=== PATIENT | female | born 1965 | race Caucasian/White ===

== ENCOUNTER 2021-03-10 17:48 | Outpatient (CLI) | payer BC, SELFPAY ==
--- NOTE | 2021-03-10 18:04 | XR_ITS ---
WS: [id number] RIGHT FOOT: 3 VIEW(S) TECHNIQUE: AP, oblique and lateral. HISTORY: FOOT PAIN, RIGHT COMPARISON: None available. No acute fracture or dislocation. Normal tarsal/metatarsal alignment. No soft tissue abnormality or bone destruction. 10 mm calcaneal spur. XR/XR foot RT min 3V* [id number] IMPRESSION: 1. No fracture. 2. 10 mm calcaneal spur.
== END 2021-03-10 17:49 | disposition home or self-care (01) ==
PROVIDERS: PCP Nurse Practitioner Family; Visit Provider Nurse Practitioner Family
DX: M77.31 Calcaneal spur, right foot (principal)
CPT/HCPCS: 73630

== ENCOUNTER 2021-08-20 15:04 | Outpatient (CLI) | payer BC, SELFPAY ==
--- NOTE | 2021-08-20 15:16 | MM_ITS ---
WS: [id number] BILATERAL SCREENING 3D TOMOSYNTHESIS DIGITAL MAMMOGRAM WITH CAD HISTORY: SCREENING COMPARISON: 11/26/2018 and 10/12/2010 Bilateral CC and MLO views submitted. Computer aided detection analyzed. Breast composition: There are scattered areas of fibroglandular density. No suspicious masses, microc alcifications or architectural distortion. MM/[place] [id number] IMPRESSION: BI-RADS: 1-Negative FOLLOW UP: 1 Year Follow-up
== END 2021-08-20 15:05 | disposition home or self-care (01) ==
PROVIDERS: PCP Nurse Practitioner Family; Visit Provider Nurse Practitioner Family
DX: Z12.31 Encounter for screening mammogram for malignant neoplasm of breast (principal)
CPT/HCPCS: 77063; 77067

== ENCOUNTER 2024-08-09 15:45 | Outpatient (CLI) | payer BC, SELFPAY ==
--- NOTE | 2024-08-09 15:51 | XRR_ITS ---
PROCEDURE INFORMATION: Exam: XR Chest Exam date and time: 08/09/2024 3:55 PM Age: 59 years old Clinical indication: Smoker's cough; Additional info: Uri TECHNIQUE: Imaging protocol: Radiologic exam of the chest. Views: 2 views. COMPARISON: No relevant prior studies available. FINDINGS: Lungs: Calcified nodule in the right lung base. No lobar consolidation. Pleural spaces: Unremarkable. No pleural effusion. No pneumothorax. Heart/Mediastinum: Unremarkable. No cardiomegaly. Bones/joints: Unremarkable. XR/XR chest 2V* [id number] IMPRESSION: As above.
== END 2024-08-09 15:46 | disposition home or self-care (01) ==
LOC: RAD 15:48
PROVIDERS: PCP Nurse Practitioner Family; Visit Provider Nurse Practitioner Family
DX: J06.9 Acute upper respiratory infection, unspecified (principal); F17.200 Nicotine dependence, unspecified, uncomplicated; R91.1 Solitary pulmonary nodule
CPT/HCPCS: 71046

== ENCOUNTER 2025-01-25 17:29 | Inpatient (IN) | payer BC, SELFPAY ==
[2025-01-25] VITALS (26 sets, daily range): BP systolic 89–132; BP diastolic 60–86; PULSE 71–99; RESP 8–25; TEMP 36.2–36.4; O2SAT 90–100; BMI 27.3
--- NOTE | 2025-01-25 17:31 | ECG_ITS ---
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 Measurements Intervals [place] Rate: 93 P: 60 NC: 175 QRS: 16 QRSD: 156 T: 90 QT: 372 QTc: 464 Interpretive Statements SINUS RHYTHM POSSIBLE LEFT ATRIAL ENLARGEMENT [-0.1mV P-WAVE IN V1/V2] INTRAVENTRICULAR CONDUCTION DELAY [130+ ms QRS DURATION] MARKED ST ELEVATION, CONSIDER ANTEROLATERAL INJURY [MARKED ST ELEVATION W/O NORMALLY INFLECTED T-WAVE IN V2-V5] MARKED ST ELEVATION, CONSIDER INFERIOR INJURY [MARKED ST ELEVATION W/O NORMALLY INFLECTED T-WAVE IN II/aVF] ACUTE [place] No previous ECG available for comparison Electronically Signed On 01-26-2025 22:12:26 CDT by Timmy Brantley M.D. [email or web address]
--- NOTE | 2025-01-25 17:31 | XRR_ITS ---
PROCEDURE INFORMATION: Exam: XR Chest Exam date and time: 01/25/2025 5:38 PM Age: 59 years old Clinical indication: Pain; Chest pressure; Additional info: Chest pain; Stemi TECHNIQUE: Imaging protocol: Radiologic exam of the chest. Views: 1 view. COMPARISON: CR XR chest 2V* [id number] 08/09/2024 3:55 PM FINDINGS: Lungs: Probable pulmonary granuloma at the right lung base. Otherwise Unremarkable. No consolidation. Pleural spaces: Unremarkable. No pleural effusion. No pneumothorax. Heart/Mediastinum: Unremarkable. No cardiomegaly. Bones/joints: Probable calcific tendinopathy of the bilateral shoulders, [id number]-[id number]-[id number]-left. Otherwise Unremarkable. XR/XR chest 1V portable [id number] IMPRESSION: No acute findings.
--- NOTE | 2025-01-25 17:36 | XACV_ITS ---
Exam Room: 2 Ht: 173 cm Wt: 82 kg BSA: 2.00 m2 Gender: Female : 1965 Any Known Allergies: No known allergies Exam Priority: Routine Procedure(s): Procedure Description: Diagnostic procedure Procedure Description: PCI procedure Procedure Description: Left Heart Catheterization Procedure Description: Left ventriculography Procedure Description: Drug Eluting Coronary Stent Procedure Description: PTCA Procedure Description: Miscellaneous Procedure Description: ACT Procedure Description: Coronary Angiography Diagnostic Cath Status: Emergency Diagnostic Findings * Left Main has no disease. * Circumflex has no disease. * Proximal Left Anterior Descending to Mid Left Anterior Descending: subtotal occlusion, FALLON: 1 flow. * Proximal Right Coronary Artery: moderate 50% stenosis, FALLON: 3 flow. * 1st Diagonal: subtotal occlusion, FALLON: 2 flow. * Coronary angiography shows right dominance. PCI Indication: STEMI - Immediate PCI for STEMI Interventional Findings * Urgent left heart catheterization was performed for ST elevation LA. Patient was noted to have subtotally occluded bifurcating proximal to mid LAD with moderate size and caliber parallel diagonal system. RCA was noted to have proximal 40% stenosis, left circumflex has no significant disease. Given the nature of the bifurcating lesion, we discussed the option of urgent CABG while talking to the family patient had a V-fib arrest, it is the reason we have to intervene emergently. Patient was treated with multiple defibrillations given amiodarone bolus followed by amnio drip at the same time with intermittent, proximal LAD to proximal diagonal stent was placed. With pre and postdilated with noncompliant balloon. Mid LAD lesion was then predilated with compliant balloon followed by placement of drug-eluting stent postdilated with noncompliant balloon. Excellent angiographic result FALLON-3 flow was restored. LV gram was suggestive of 40% ejection fraction with moderately elevated left ventricular end-diastolic pressure 24 mmHg there was no aortic valve gradient. Patient was started on Levophed, since she was throwing up in the ED there was high suspicion that patient may have vomited loading dose of Plavix. OG tube was passed and patient is loaded with Brilinta. Currently patient is intubated on 1 pressor at the moment blood pressure is 130/80. She is stable vital faustin. She is on vent with 100% FiO2 and PEEP of 6.. * Successful PCI from proximal LAD into proximal Diagonal branch, Lesion was prepared with 2.5 x 20 mm AB TREK balloon, followed by deployment of BALWINDER 3.0 x 26 mm stent posted at high RERE of 12 mm. Stent was then post-dilated with serial dilatation of NC BALLOON 3.5 x 8 at 18 RERE in its entire length to ensure proper approximation. Excellent angiographic result with FALLON-3 flow was achieved. . * Successful PCI to mid LAD using T stenting technique, Lesion was prepared with 2.5 x 8 mm AB TREK balloon, followed by deployment of BALWINDER 2.5 x 8 mm stent posted at high RERE of 12 mm. Stent was then post-dilated with serial dilatation of NC BALLOON 3.0 x 8 at 18 RERE in its entire length to ensure proper approximation. Excellent angiographic result with FALLON-3 flow was achieved. . * Proximal Left Anterior Descending to Mid Left Anterior Descendin% stenosis treated with a Drug Eluting Stent. 0% residual stenosis, FALLON: 3 flow. * 1st Diagonal: 99% stenosis treated with a Drug Eluting Stent. 0% residual stenosis, FALLON: 3 flow. Conclusions 1. There is subtotal occlusion coronary artery disease with two vessel disease. 2. The apex, mid posterior, anterolateral martin are hypokinetic. 3. All other visualized martin normal. 4. Mild left ventricular systolic dysfunction. Ejection fraction of 40%. 5. Proximal Left Anterior Descending to Mid Left Anterior Descending was treated with a Drug Eluting Stent. 6. 1st Diagonal was treated with a Drug Eluting Stent. Recommendations * 1-Transfer patient to the ICU over vent and 1 pressor, condition remained guarded and critical 2-Risk factor modification for secondary prevention 3-Statin with LDL goal <70 mg/dl, aspirin 81 mg life-long 4-Patient was pre-loaded with 180mg of Brillinta. Continue Brillinta 90mg p.o. twice daily for at least one year. We will assess at the end of one year again to continue it further or not 5-Continue optimal medical management 4-Exvrb-stgqsdty antibiotics for possible aspiration, continue to monitor for pneumonia and ARDS. Interventional RX Recommendation: PCI w/o planned CABG Diagnostic RX Recommendation: PCI w/o planned CABG LV EDP: 24 mmHg Ventriculography Ejection Fraction: 40.0 % Pressures Phase:Rest AO : 104 / 66 ( 85 ) @ 3:09:26 PM 107 / 60 ( 84 ) @ 3:09:26 PM 481 / 0 ( 267 ) @ 3:09:26 PM 479 / 478 ( 166 ) @ 3:09:26 PM 87 / 72 ( 80 ) @ 3:09:26 PM 85 / 64 ( 75 ) @ 3:09:26 PM 149 / 85 ( 110 ) @ 3:09:26 PM 119 / 63 ( 86 ) @ 3:09:26 PM 111 / 61 ( 82 ) @ 3:09:26 PM LV : 107 / 3 / 24 @ 3:09:26 PM 104 / 5 / 27 @ 3:09:26 PM 105 / 5 / 28 @ 3:09:26 PM Valves Phase:DefaultPhase AV : 0.0 @ 8:09:26 PM AV Mean Gradient: 0.0 @ 8:09:26 PM Clinical Evaluation EBL: 5mL-10mL Procedural Details Pre-Procedure Time Out. Identified patient by full name and date of as verbalized by the patient/guarantor. Does the consent match the physician's order: N/A Emergent. Accurate & Complete Informed Consent: N/A Emergent. Inpatient/Outpatient History & Physical on Chart: N/A Emergent. If H&P is completed, is and addenduem needed: N/A Emergent; If yes, is the addendum complete: N/A Emergent. Visualize and Verify Site with Patient/Guarantor: N/A. Relevant Radiology Images available: N/A. The risks, benefits, and alternatives of sedation and/or procedure were discussed by physician. The patient agrees to continue. Procedure started. [facility] Clinical Fraility Score: 4: Vulnerable. Data Warehouse Architect Indications: ACS <= 24 hours. Chest Pain Symptom Assessment: Typical Angina Symptoms. Correct patient, site and procedure confirmed by cath team. Current diagnosis: STEMI. PERRLA. Strong, equal hand carpenter form bilaterally. Lungs clear x 5 lobes. IV Site on Arrival: 20 gauge in the left anticubital. IV Site on Arrival: 18 gauge in the right anticubital. IV Fluids: 0.9% NaCl at KVO. 400 mL infused prior to manufacturing lab technician. Pre Procedural Pulses: right radial was Absent. Pre Procedural Pulses: bilateral dorsalis pedis was Doppled. Oxygen started at 3liters/min via nasal canula. bilateral groins was prepped with chloroprep then draped in the usual sterile fashion. Baseline sample Acquired. HR: 75 BPM. Physician notified. Physician arrived. Physician scrubbed in. Immediate Pre-Procedure Time Out. Correct Patient: Yes; Correct Procedure: Yes; Correct Site: Yes; Correct Patient Position: Yes; Correct Supplies: Yes; Dried Flammable Prep: Yes; Blood Products Available: No;. Lidocaine 1% infiltrated to the right groin. Admit Source: Emergency department. Arterial access obtained with micropuncture set. Lidocaine 1% infiltrated to the right groin. 6 cameroonian JR 4 guide catheter was inserted over the wire. Guide catheter out. 6 cameroonian XB 3 guide catheter was inserted over the wire. Add inventory: Co-mobile tester, Endoflator. Angiography performed. Guide catheter out. A 5 cameroonian Angled Pig catheter in over wire. EDP Sample taken: LV 107/3,24; HR: 79 BPM; SpO2: 93%. LV gram performed in BROWN @ 10 mL/second for a total of 30 mL. EDP Sample taken: LV 104/5,27; HR: 80 BPM; SpO2: 96%. Pullback taken: LV 105/5,28; AO 104/66(85); Mean: 0mmHg, Peak to Peak: 0mmHg, SEP: 22sec/min; HR: 80 BPM; SpO2: 92%. Catheter removed over the exchange wire. A Right femoral angiogram was performed to determine safe placement of closure device. Vfib arrest. Shocked Delivered. CODE BLUE called. See code flowsheet. V-fib arrrest. Shock delivered. Obtained ROSC. XB 3 guide catheter in over the wire. Runthrough guidewire was advanced through the guide catheter to lesion in the prox LAD. Inflation number : 1 A AB TREK 2.50X20 RX BALLOON was prepped and advanced across the Prox LAD , then inflated to 20 RERE for 0:08 seconds. V-fib shock delivered. Balloon out. Stent inserted to lesion in the prox LAD. Inflation Number : 2 A SARA Pink BALWINDER 3.0X26 ERVIN -Lot Number# [id number] EXP 08-26-2027 was prepped and advanced across the Prox LAD. The stent was deployed at 14 RERE for 0:11 seconds. Stent balloon out over wire. Results checked. ED physician arrived to intubate patient , size 7.5 tube 23 at lip. RT at bedside bagging patient and airway management. ACT drawn. Results 394 seconds. Therapeutic limits - pre-heparin administration 90-150 seconds and monitoring heparin during a vascular procedure >250 seconds. Second runthrough wire in through guide catheter to diagonal. Lidocaine 1% infiltrated to the left groin. Venous access obtained with a micropuncture set. Levophed gtt titrated to 15mcg/min by Cale Winston RN. Propofol gtt started at 35mcg/kg/min by Cale Winston. Propofol titrated to 50mcg/kg/min by Cale Winston RN. OG tube placed. Propofol titrated to 6mcg/kg/min by Cale Winston, RN. Balloon inserted to lesion in the mid LAD. Versed gtt started by Cale Winston RN at 1mg/hr. Inflation number : 1 A AB TREK 2.50X8 RX BALLOON was prepped and advanced across the Mid LAD , then inflated to 8 RERE for 0:12 seconds. Inflation number: 1 The AB TREK 2.50X8 RX BALLOON was reinflated across the Mid LAD1, to 10 RERE for 0:10 seconds. Balloon out. Stent inserted to lesion in the mid LAD. Inflation Number : 2 A MDT R BALWINDER 2.5X8 ERVIN -Lot Number# [id number] EXP 01-13-2026 was prepped and advanced across the Mid LAD. The stent was deployed at 12 RERE for 0:07 seconds. Stent balloon out over wire. Results checked. Balloon inserted to lesion in the diaganol. Inflation number : 1 A MDT NC EUPHORA RX 3.50Y68PN BALLOON was prepped and advanced across the 1st Diag , then inflated to 8 RERE for 0:05 seconds. Inflation number: 2 The MDT NC EUPHORA RX 3.21O83UJ BALLOON was reinflated across the 1st Diag, to 8 RERE for 0:10 seconds. Inflation number: 3 The MDT NC EUPHORA RX 3.34I55RV BALLOON was reinflated across the 1st Diag, to 4 RERE for 0:04 seconds. Inflation number: 3 The MDT NC EUPHORA RX 3.28J98ZZ BALLOON was reinflated across the Prox LAD, to 8 RERE for 0:06 seconds. Balloon out over the wire. Balloon inserted to lesion in the mid LAD. Aggrastat gtt stopped due to blood out of OG tube. Inflation number : 3 A MDT NC EUPHORA RX 3.51U91MN BALLOON was prepped and advanced across the Mid LAD , then inflated to 10 RERE for 0:09 seconds. Balloon out. Both runthrough wires out. Guide catheter out. Results checked. Anesthesia arrived to manage sedation for patient. A Suture was successful obtaining hemostatsis at the Right Femoral artery insertion site. Sheath(s) sutured into position with 2-0 silk and sterile 4x4's and Op-site applied over the site. No oozing or signs and symptoms of hematoma noted. Arterial sheath flushed and connected to tranducer and pressure bag with heparinized saline. A Suture was successful obtaining hemostatsis at the Left Femoral vein insertion site. Post Procedure: Pulses reassessed and unchanged. No VTE prophylaxis required. Total IV fluids: 500 mL. ACT drawn. Results 308 seconds. Therapeutic limits - pre-heparin administration 90-150 seconds and monitoring heparin during a vascular procedure >250 seconds. PCI Indication: STEMI. Post-op diagnosis: Anterior wall LA, status post PCI placement of 2 ERVIN. Complications: V-fib arrest. Estimated blood loss: 5mL-10mL. Airway - Required intubation and ventilation. Circulation: W/N/L, pulses unchanged. Nausea/Vomiting: No. Radiology arrived to obtained post intubation chest xray. Procedure completed. Patient transferred by bed to ICU. Vital chart was stopped. Access Site Site: Right Femoral artery Sheath Size: 6 Fr Hemostasis Method: Suture Hemostasis Success: Successful Site: Left Femoral vein Sheath Size: 6 Fr Hemostasis Method: Suture Hemostasis Success: Successful Procedure Medications Start: 6:16 PM Stop: 6:16 PM Medication: 0.9% Saline Amount: 250 ml Route: I.V. bolus Start: 6:19 PM Stop: 6:19 PM Medication: Versed Amount: 1 mg Route: I.V. Start: 6:19 PM Stop: 6:19 PM Medication: Fentanyl Amount: 50 mcg Start: 6:24 PM Stop: 6:24 PM Medication: Atropine Amount: 0.5 mg Start: 6:26 PM Stop: 6:26 PM Medication: Versed Amount: 1 mg Route: I.V. Start: 6:26 PM Stop: 6:26 PM Medication: Heparin Amount: 5000 units Route: I.V. Start: 6:28 PM Stop: 6:28 PM Medication: Fentanyl Amount: 25 mcg Route: I.V. Start: 6:54 PM Stop: 6:54 PM Medication: Aggrastat 12.5 mg/250 mL Amount: 41 ml Route: I.V. bolus Start: 6:56 PM Stop: 6:56 PM Medication: Aggrastat 12.5 mg/250 mL Amount: 14.8 ml/hr Route: I.V. bolus Start: 6:41 PM Stop: 6:41 PM Medication: Amiodarone (Cordarone) Amount: 150 mg Route: I.V. bolus Start: 6:42 PM Stop: 6:42 PM Medication: Levophed (norepinephrine) Amount: 4 mcg/min Route: I.VSeverino velasquez I, the attending physician, have reviewed and verified all procedure medications. Yes, all medications given per verbal order Report Signatures Finalized by Reyes Costa MD on 01/26/2025 12:47 PM
--- NOTE | 2025-01-25 17:41 | W.ED.CHESTPA ---
HPI - Chest Pain General: Chief Complaint: Chest Pain Stated Complaint: chest pain Time Seen by Provider: 01/25/25 17:40 Source: patient Mode of arrival: ambulatory Limitations: no limitations History of Present Illness: 59-year-old female who states she started having chest pain roughly 40 minutes ago states been a pressure type pain she rates an 8 out of 10 she has had vomiting along with diaphoresis. Patient denies any history of any coronary artery disease or stents in the past is a smoker. Denies any worse improving factors. Associated symptoms: Reports nausea and vomiting; Deny abdominal pain, dyspnea or fever(s) Related Data Allergies Allergy/AdvReac Type Severity Reaction Status Date / Time No Known Allergies Allergy Verified 01/25/25 17:47 Review of Systems Const: Denies: fever(s), chills, body aches or change in appetite ENMT: Denies: throat pain or dental pain Card: Reports: chest pain Resp: Denies: dyspnea GI: Reports: nausea and vomiting; Denies: abdominal pain or diarrhea : Denies: dysuria Musc: Denies: neck pain or back pain Skin/Breast: Denies: rash Neuro: Denies: headache(s) Physical Exam Const: COMMON NORMALS: patient oriented x3 HENMT: COMMON NORMALS: normocephalic and atraumatic HEAD & SCALP: normocephalic and atraumatic Neck/C-Spine: COMMON NORMALS: full ROM and supple Chest: COMMONS NORMALS: normal inspection of the chest Resp: COMMON NORMALS: normal respiratory effort, No retractions, No use of accessory muscles and clear to auscultation bilaterally AUSCULTATION: clear to auscultation bilaterally Cardio: COMMON NORMALS: regular rate, regular rhythm and No murmurs present (Cardio) RATE: regular rate RHYTHM: regular rhythm GI: COMMON NORMALS: non-tender Extremity: COMMON NORMALS: normal to inspection and full ROM Neuro: COMMON NORMALS: patient oriented x3, moves all extremities and no focal motor deficits Psych: COMMON NORMALS: mental status grossly normal, Normal thought process present and cooperative THOUGHT PROCESS: Normal thought process present Skin: COMMON NORMALS: no rashes or lesions noted and no wounds GENERAL SKIN EXAM: no rashes or lesions noted MDM - Chest Pain Medical Decision Making Patient presents here with chest pain EKG does show ST elevation Steam Station Supervisor has been activated patient given heparin and Plavix. Medical Records I reviewed the patient's medical records. Lab Data I reviewed the patient's lab results. All radiology interpretation(s) finalized by discharge EKG Data EKG 1: I personally reviewed and interpreted this EKG as follows: EKG interpretation date: 01/25/25 EKG interpretation time: 17:33 Interpretation: nsr hr 93 st elevation mi qrs 156 qtc 423 Discharge Plan Discharge Patient Disposition: Admitted As Inpatient Clinical Impression: ST elevation OK (STEMI) Condition: Stable Coding Level of Care Code ED Drop Hammer Mechanic for Darrion Theodore
[2025-01-25] MEDS: ondansetron 2 mg/ML SDV 2 mL 4 MG IVP ×2 (17:43→17:57)
[2025-01-25 17:50] LABS: Hematocrit 44.0 % (36-47); Hemoglobin 15.20 g/dL (11.27-16.99); Mean Corpuscular HGB Conc 34.5 g/dL (30-55); Mean Corpuscular Hemoglobin 31.7 pg (27-33); Mean Corpuscular Volume 91.9 fl (85-98); Nucleated Red Blood Cells % 0 %; Platelet Count 275 10^3/cmm (157-399); Red Blood Count 4.79 10^6/uL (3.85-5.65); White Blood Count 10.99 10^3/uL (3.29-11.43)
[2025-01-25] MEDS: morphine 4 mg/mL SDV 1 mL IVP (17:51)
[2025-01-25] MEDS: heparin 5,000 unit/mL INJ 1 mL 4000 UNIT IVP (17:57)
--- NOTE | 2025-01-25 18:05 | P.HP_ITS ---
Providers/Chief Complaint 2 Admitting Physician: Reyes Costa MD/interventional cardiology Primary Care Provider: Simi Givens Chief Complaint: chest pain History of Present Illness Olimpia Yu is a 59 year old female past medical history significant for continues tobacco abuse hyperlipidemia presented with chest pain since 5 PM. When it become unbearable she decided to come to the ER. Twelve-lead EKG was suggestive of inferior lead ST elevation with underlying right bundle branch block no previous EKG to compare. Patient appeared to be hypotensive diaphoretic and vomiting she was loaded with 600 mg of Plavix 325 mg of aspirin however since patient has been vomiting it is questionable that she has absorbed or kept the medicine down. Medications/Allergies Allergies Allergy/AdvReac Type Severity Reaction Status Date / Time No Known Allergies Allergy Verified 01/25/25 17:47 Vitals/I&O/Wt Last Vital Signs Temp 97.1 F L 01/25/25 17:44 Pulse 77 01/25/25 17:46 Resp 24 H 01/25/25 17:51 BP 98/70 01/25/25 17:46 Pulse Ox 98 01/25/25 17:51 O2 Del Method Nasal Cannula 01/25/25 17:44 O2 Flow Rate 2 01/25/25 17:44 Weight last 48 hrs Weight 180 lb Physical Exam 2 Const: OTHER: GENERAL: Patient is alert, awake and oriented x3. Patient appeared to be in moderate to severe distress and diaphoretic. HEART: Regular S1 and S2. No murmur, rub or gallop. LUNGS: Decreased breath sounds bilaterally. CENTRAL NERVOUS SYSTEM: Grossly nonfocal. EXTREMITIES: Lower extremities with out edema bilaterally. Data 01/25/25 17:44 01/25/25 17:44 A&P Assessment and plan 1. ST elevation [place] (STEMI): 2. Hypotension: 3. Tobacco abuse: Plan: We will proceed with emergent left heart cath/PCI if indicated. Plan to repeat 600 mg of Plavix and aspirin once nausea and vomiting stops. Plan to give IV fluid for hypotension. Further plan will be advised as per progress of the patient. Will counseling psychologist patient for cessation of tobacco use. PDMP PDMP Reviewed: Not Reviewed Attestations 2 Medical Necessity Statement*: I am expecting her stay to cross more than 2 midnights Coding Level of Care Code Acute Code for Chg Fwd Diagnoses ST elevation [place] (STEMI) I21.3 Hypotension I95.9 Tobacco abuse Z72.0
[2025-01-25 18:10] LABS: Troponin(5th) Baseline 9 ng/L (0-10)
[2025-01-25 18:11] LABS: Alanine Aminotransferase 9 U/L (0-33); Albumin Level 4.5 g/dL (3.5-5.2); Alkaline Phosphatase 89 U/L (35-105); Blood Urea Nitrogen 10 mg/dL (6-20); Calcium 9.4 mg/dL (8.5-10.5); Carbon Dioxide 21 mmol/L (22-29); Chloride 103 mmol/L (98-107); Creatinine Clr Calc Pharmacy 84.8658; Globulin 2.5 g/dL (1.3-4.6); Glucose 124 mg/dL (65-115); Lipase 43 U/L (13-60); Osmolality Calculated 286 mOsm/kg (285-295); Sodium 138 mmol/L (136-145); Total Protein 7.0 g/dL (6.6-8.7)
[2025-01-25 18:13] LABS: Anion Gap 18.5 (5-19); Aspartate Amino Transferase 17 U/L (0-32); Potassium 4.5 mmol/L (3.5-5.1)
--- NOTE | 2025-01-25 19:45 | XRR_ITS ---
PROCEDURE INFORMATION: Exam: XR Chest Exam date and time: 01/25/2025 7:46 PM Age: 59 years old Clinical indication: Device placement; Ett placement (vent status); Additional info: Ett/og placement TECHNIQUE: Imaging protocol: Radiologic exam of the chest. Views: 1 view. COMPARISON: CR (CHEST, ) 01/25/2025 5:38 PM FINDINGS: Tubes, catheters and devices: Enteric tube in the region of the gastric bubble. ETT probably at the level of the sandor. Lungs: Bilateral perihilar haziness, nonspecific, could represent edema or infection. Stable appearance of probable granuloma in the right lung base. Pleural spaces: Unremarkable. No pleural effusion. No pneumothorax. Heart/Mediastinum: Unremarkable. No cardiomegaly. Bones/joints: Unremarkable. Organs: Probable cholecystectomy clips. XR/XR chest 1V portable [id number] IMPRESSION: Enteric tube in the region of the gastric bubble. ETT probably at the level of the sandor. Bilateral perihilar haziness, nonspecific, could represent edema or infection.
--- NOTE | 2025-01-25 19:56 | P.PNCC_ITS ---
Critical Care Event Note The high probability of a clinically significant, sudden or life threatening deterioration of the patient's [] system(s) required my full and direct attention, intervention and personal management. The critical care time is as shown. This time is in addition to time spent performing any reported procedures but includes the following: [x] Data and vital sign review and interpretation [x] Patient assessment, examination and intervention [x] Documentation [x] Medication orders and management I was called to bedside for CODE BLUE. Patient was in [employer] Machine Operator and the thoroughbred horse farm manager was managing the CODE BLUE but needed help with airway management. I assisted with intubation using RSI as patient had been shocked and regained some consciousness. Patient initially was at attempted intubation with a S3 blade and a 8 oh tube. 8 oh tube would not pass through the cords. She was downsized to a seven 1/2 which passed through easily. Critical Care Time Code activated: Yes Critical Care Time (min): 20 Procedures Intubation Time out performed: No Sedative: etomidate Mg given: 20 Paralytic: rocuronium Mg given: 100 Laryngoscope: fiber optic video scope Assist device used: fiber optic device ET tube size: 7.5 ET tube uncuffed: No Tube secured depth (cm): 23 Tube secured location: teeth Tube placement confirmation: visualized tube passing through cords, equal breath sounds bilaterally, no breath sounds over epigastrium and color change noted Patient tolerated procedure: well Intubation complications: none Coding Level of Care Code Acute Code for Chg Fwd
[2025-01-25] MEDS: norepinephrine 4 MG/250 ML BAG 56.25 MG IV (20:10)
[2025-01-25] MEDS: propofol 1,000 MG/100 ML INJ 34.29 MG IV (20:10)
[2025-01-25] MEDS: midazolam hcl 100 MG/100 ML BAG IV (20:10)
--- NOTE | 2025-01-25 20:14 | P.MISC_ITS ---
Miscellaneous Note Note: Called urgently to laboratory equipment cleaner to aid sedation for a STEMI. Upon arrival patient was intubated and sedated on midazolam and propofol drip, but was experiencing residual coughing. Bolused propofol 70 mg from pump and increased rate from 60 mcg/kg/min to 100 mcg/kg/min, and admininistering vecuronium 2 mg IV before patient was moved to ICU bed and transported to ICU.
--- NOTE | 2025-01-25 20:22 | P.PCN_ITS ---
Procedure Note: Date of procedure: 01/25/25 Pre-procedure diagnosis: ST elevation [place], shock, V-fib Procedure: Urgent left heart catheterization was performed for ST elevation [place]. Patient was noted to have subtotally occluded bifurcating proximal to mid LAD with mod erate size and caliber parallel diagonal system. RCA was noted to have proximal 40% stenosis, left circumflex has no significant disease. Given the nature of the bifurcating lesion, we discussed the option of urgent CABG while talking to the family patient had a V-fib arrest, it is the reason we have to intervene emergently. Patient was treated with multiple defibrillations given amiodarone bolus followed by amnio drip at the same time with intermittent, proximal LAD to proximal diagonal stent was placed. With pre and postdilated with noncompliant balloon. Mid LAD lesion was then predilated with compliant balloon followed by placement of drug-eluting stent postdilated with noncompliant balloon. Excellent angiographic result FALLON-3 flow was restored. LV gram was suggestive of 40% ejection fraction with moderately elevated left ventricular end-diastolic pressure 24 mmHg there was no aortic valve gradient. Patient was started on Levophed, since she was throwing up in the ED there was high suspicion that patient may have vomited loading dose of Plavix. OG tube was passed and patient is loaded with Brilinta. Currently patient is intubated on 1 pressor at the moment blood pressure is 130/80. She is stable vital faustin. She is on vent with 100% FiO2 and PEEP of 6. Plan Will keep patient intubated overnight Continue Levophed IV Lasix 60 mg twice daily Check lactic acid Echocardiogram in the morning Empiric broad-spectrum antibiotics for possible aspiration Consult with medicine colleague Dr. Mcclellan was discussed on the phone and in person Discussed with the family 2-3 times regarding patient condition and treatment. Condition remained guarded. Coding Level of Care Code Acute Code for Darrion Fwyonathan
[2025-01-25] MEDS: FUROsemide 10 mg/mL SDV 10mL 60 MG IVP (20:35)
[2025-01-25 21:23] LABS: ABG PCO2 49.8 mmHg (35-45); ABG PH Result 7.26 (7.35-7.45); Alveolar-Arterial Oxygen Gradi 78.1 mmHg (5-10); Arterial Blood Gas Hematocrit 45.7 % (37-47); Blood Gas Allen Test Pos; Blood Gas Operator Identificat SAM; Blood Gas Sample Site Femoral, right; Blood Gas Sample Type Arterial; Blood Gas Tidal Volume 0.45; Carboxyhemoglobin 4.6 %THgb (0.4-20.1); Glucose Level-ABG 177.0 mg/dL (70-115); HCO3 ABG 22.4 mmol/L (22-26); Ionized Calcium Level - ABG 1.1 mmol/L (1.1-1.4); Methemoglobin 1.1 % (0.4-1.5); Oxygen Saturation ABG 85.6; PEEP 6.0 cmH20; PO2 ABG 52.8 mmHg (80.0-100.0); PO2 FiO2 Ratio Arterial Blood 52; Potassium Level - ABG 3.7 mmol/L (3.5-5.0); Sodium Level - ABG 139.0 mmol/L (131-143)
--- NOTE | 2025-01-25 21:27 | P.CONIM_ITS ---
Providers/Reason For Consult 2 Consulting Physician/Specialty*: PATIENCE ANTONIO DO Reason for Consult*: Medical management for aspiration pneumonitis Requesting Physician: Dr. Costa cardiology Attending Physician: Reyes Costa MD Primary Care Provider: Simi Givens History of Present Illness History of Present Illness Olimpia Yu is a 59 year old female with medical history significant for coronary artery disease with a recent acute coronary syndrome . Patient status post V-fib arrest in the Business Development Coordinator resuscitated and then follow through with stent placement to the LAD lesion. Patient did not come to ICU with balloon pump it was stated that the patient does not need it at this time. Patient was actually at home and told the that she is experiencing remarkable shortness of breath and chest pains and that she would like to go to the hospital because she does not feel good. Ambulance came for the patient patient came to the hospital cardiology took the patient straight to the Business Development Coordinator because patient has changes in inferior lateral leads yes indeed patient has LAD lesion at bifurcation. As the cardiology debated without to do a CABG or stent patient went into V-fib arrest Dr. Costa worked quickly and stented the LAD Dr. Costa called me on consultation for medical management of this patient. Patient did aspirate at the time of intubation as she was vomiting. Post cath patient was still intubated Vent management was continued patient was loaded up on Brilinta of 180 mg p.o. Sedation medication we are propofol and Versed Patient is quite sedated Medications/Allergies Allergies Allergy/AdvReac Type Severity Reaction Status Date / Time No Known Allergies Allergy Verified 01/25/25 17:47 Current Medications Generic Name Dose Route Start Last Admin Trade Name Freq PRN Reason Stop Dose Admin Enoxaparin Sodium 40 mg 01/25/25 20:00 01/25/25 20:41 Enoxaparin 40 Mg/0.4 Ml Syringe SUBCUT 40 mg Q24H BRIDGET Administration Furosemide 60 mg 01/25/25 20:25 01/25/25 20:35 Furosemide 10 Mg/Ml Sdv 10ml IVP 60 mg Q12H BRIDGET Administration Sodium Chloride 1,000 mls @ 50 mls/hr 01/25/25 20:00 01/25/25 20:37 Sodium Chloride 0.9% IV 50 mls/hr .Q20H BRIDGET Administration Vitals/I&O/Wt Last Vital Signs Temp 97.1 F L 01/25/25 17:44 Pulse 71 01/25/25 18:01 Resp 23 H 01/25/25 21:04 BP 100/63 01/25/25 18:01 Pulse Ox 92 01/25/25 21:04 O2 Del Method Nasal Cannula 01/25/25 17:44 O2 Flow Rate 2 01/25/25 17:44 Weight last 48 hrs Weight 81.647 kg Physical Exam 2 Narrative: Generally patient is relaxed intubated and sedated. Patient aspirated during the process of intubation and Zosyn monotherapy had been ordered another provider did add vancomycin as well. HEENT normocephalic/atraumatic neck neck is supple cardiovascular heart rate is regular lungs are pretty much clear abdomen is soft nontender nondistended unremarkable extremities are intact no edema has good pulses neurology has no focality lab studies lab studies reviewed and noted. Data 01/26/25 03:18 01/26/25 03:18 A&P Assessment and plan 1. Coronary artery disease with recent acute coronary syndrome: 2. Cardiac arrest with ventricular fibrillation: 3. Tobacco abuse: 4. Hypotension: 5. Aspiration pneumonitis: Plan: Aspiration pneumonitis - Single monotherapy with Zosyn initiated patient is intubated - There is also an vancomycin ordered by another provider. - Follow through with subsequent x-ray if needed - Nebulizing treatment and sedation in place - Continue to monitor and follow through with vent management Inflammatory syndrome with much white count elevation - Continue to monitor and optimize - Continue antibiotics Hypotension - Secondary to cardiogenic shock and V-fib arrest - Levophed initiated - Patient doing better with blood pressure GI and DVT prophylaxis in place PDMP PDMP Reviewed: Not Reviewed Consult Attestations 2 Medical Necessity Statement: Patient had V-fib arrest and aspirated during intubation with airway intubation in ICU need at least 2 midnights for optimization of care patient. Patient meets criteria for inpatient stay Coding Level of Care Code 53806 Diagnoses Coronary artery disease with recent acute coronary syndrome I25.10; I24.9 Cardiac arrest with ventricular fibrillation I46.9; I49.01 Tobacco abuse Z72.0 Hypotension I95.9 Aspiration pneumonitis J69.0 Time Spent (min) 60
--- NOTE | 2025-01-25 21:28 | PC.NURSE ---
Assisted lab technician with managing drips. Patient was on levophed, versed and propofol, see lab technician log for administration. Dr. Baxter came and assisted with sedation.
[2025-01-25] MEDS: piperacillin-tazobactam 3.375 GM in sodium chloride 0.9% (plus) 50 ML IV (21:49)
[2025-01-25] MEDS: vancomycin 1,750 MG/350 ML PIGGYBACK 233.33 MG IV (21:54)
[2025-01-25 22:00] LABS: Lactate (Lactic Acid level) 1.0 mmol/L (0.5-2.2)
[2025-01-25 22:03] LABS: Partial Thromboplastin Time 111.6 SECONDS (23.9-36.7)
[2025-01-25 22:27] LABS: Estmated Average Glucose 111; Hemoglobin A1C 5.5 % (4.0-6.0)
[2025-01-25 22:35] LABS: HDL Cholesterol 59 mg/dL (60-100); Thyroid Stimulating Hormone 5.39 uIU/mL (0.27-4.20); Triglycerides 116 mg/dL (0-150); VLDL Cholestrol Calculation 23 mg/dL (0-30)
[2025-01-25 23:07] LABS: Cholesterol 191 mg/dL (0-200)
[2025-01-25] MEDS: norepinephrine 4 MG/250 ML BAG 52.5 MG IV (23:16)
[2025-01-25] MEDS: propofol 1,000 MG/100 ML INJ 29.39 MG IV (23:51)
[2025-01-26] VITALS (63 sets, daily range): BP systolic 82–118; BP diastolic 57–91; PULSE 76–103; RESP 11–19; TEMP 36.7; O2SAT 93–100
[2025-01-26 00:19] LABS: ABG PCO2 44.6 mmHg (35-45); ABG PH Result 7.28 (7.35-7.45); Arterial Blood Gas Hematocrit 41.1 % (37-47); Blood Gas Allen Test Pos; Blood Gas Sample Type Arterial; Carboxyhemoglobin 1.9 %THgb (0.4-20.1); Glucose Level-ABG 174.0 mg/dL (70-115); HCO3 ABG 21.0 mmol/L (22-26); Ionized Calcium Level - ABG 1.1 mmol/L (1.1-1.4); Methemoglobin 1.3 % (0.4-1.5); Oxygen Saturation ABG > 99.1; PO2 ABG 195.0 mmHg (80.0-100.0); Potassium Level - ABG 3.1 mmol/L (3.5-5.0); Sodium Level - ABG 140.0 mmol/L (131-143)
[2025-01-26 00:20] LABS: Alveolar-Arterial Oxygen Gradi 59.9 mmHg (5-10); Blood Gas Operator Identificat SAM; Blood Gas SIMV 8.0; Blood Gas Sample Site Brachial, right; PEEP 10.0 cmH20; PO2 FiO2 Ratio Arterial Blood 195
[2025-01-26 01:10] LABS: Anion Gap 17.4 (5-19); Blood Urea Nitrogen 9 mg/dL (6-20); Calcium 7.8 mg/dL (8.5-10.5); Carbon Dioxide 20 mmol/L (22-29); Chloride 104 mmol/L (98-107); Creatinine Clr Calc Pharmacy 97.9807; Glucose 183 mg/dL (65-115); Magnesium 1.9 mg/dL (1.7-2.3); Osmolality Calculated 289 mOsm/kg (285-295); Potassium 3.4 mmol/L (3.5-5.1); Sodium 138 mmol/L (136-145)
[2025-01-26 01:14] LABS: Troponin 5 6HR 1900 ng/L (0-10); Troponin 5 6HR Delta 1891 ng/L (0-12)
--- NOTE | 2025-01-26 01:42 | PC.NURSE ---
Dr. Costa said Ok to use venous sheath to infuse medications and infuse ns KVO.
[2025-01-26] MEDS: potassium chloride oral liq 20 mEq/15 mL UDC 40 MEQ OG-TUBE ×2 (02:29→08:40)
--- NOTE | 2025-01-26 02:36 | PC.NURSE ---
Dr. Mitchell notified that potassium dropped from 4.5 to 3.4, order received for 40 mq Potassium via OG tube.
[2025-01-26 03:21] LABS: ABG PCO2 42.1 mmHg (35-45); ABG PH Result 7.33 (7.35-7.45); Alveolar-Arterial Oxygen Gradi 43.3 mmHg (5-10); Arterial Blood Gas Hematocrit 41.6 % (37-47); Blood Gas Allen Test Pos; Blood Gas Operator Identificat SAM; Blood Gas SIMV 8.0; Blood Gas Sample Site Brachial, right; Blood Gas Sample Type Arterial; Carboxyhemoglobin 0.9 %THgb (0.4-20.1); Glucose Level-ABG 148.0 mg/dL (70-115); HCO3 ABG 22.3 mmol/L (22-26); Ionized Calcium Level - ABG 1.1 mmol/L (1.1-1.4); Methemoglobin 1.3 % (0.4-1.5); Oxygen Saturation ABG > 99.1; PEEP 10.0 cmH20; PO2 ABG 322.0 mmHg (80.0-100.0); PO2 FiO2 Ratio Arterial Blood 322; Potassium Level - ABG 3.7 mmol/L (3.5-5.0); Sodium Level - ABG 141.0 mmol/L (131-143)
[2025-01-26 03:49] LABS: Hematocrit 39.1 % (36-47); Hemoglobin 12.70 g/dL (11.27-16.99); Mean Corpuscular HGB Conc 32.5 g/dL (30-55); Mean Corpuscular Hemoglobin 30.8 pg (27-33); Mean Corpuscular Volume 94.9 fl (85-98); Nucleated Red Blood Cells % 0 %; Platelet Count 296 10^3/cmm (157-399); Red Blood Count 4.12 10^6/uL (3.85-5.65); White Blood Count 23.60 10^3/uL (3.29-11.43)
[2025-01-26 04:24] LABS: Lactate (Lactic Acid level) 1.5 mmol/L (0.5-2.2)
[2025-01-26 04:27] LABS: Alanine Aminotransferase 16 U/L (0-33); Albumin Level 3.7 g/dL (3.5-5.2); Alkaline Phosphatase 81 U/L (35-105); Anion Gap 19.2 (5-19); Aspartate Amino Transferase 65 U/L (0-32); Blood Urea Nitrogen 9 mg/dL (6-20); Calcium 7.9 mg/dL (8.5-10.5); Carbon Dioxide 20 mmol/L (22-29); Chloride 106 mmol/L (98-107); Creatinine Clr Calc Pharmacy 97.9807; Globulin 2.6 g/dL (1.3-4.6); Glucose 144 mg/dL (65-115); Magnesium 1.9 mg/dL (1.7-2.3); Osmolality Calculated 293 mOsm/kg (285-295); Potassium 4.2 mmol/L (3.5-5.1); Sodium 141 mmol/L (136-145); Total Protein 6.3 g/dL (6.6-8.7)
[2025-01-26] MEDS: propofol 1,000 MG/100 ML INJ 17.15 MG IV (04:33)
[2025-01-26] MEDS: piperacillin-tazobactam 3.375 GM in sodium chloride 0.9% (plus) 50 ML IV (05:00)
--- NOTE | 2025-01-26 08:00 | XRR_ITS ---
PROCEDURE INFORMATION: Exam: XR Chest Exam date and time: 01/26/2025 9:08 AM Age: 59 years old Clinical indication: Other: Respiratory distress; Additional info: Post mi/cardiac cath; Evaluate lung condition. TECHNIQUE: Imaging protocol: Radiologic exam of the chest. Views: 1 view. COMPARISON: CR XR chest 1V portable [id number] 01/25/2025 7:46 PM FINDINGS: Tubes, catheters and devices: Endotracheal tube terminates approximately 4.4 cm above the sandor. Enteric tube passes into the stomach with side port in the region of the GE junction. Defibrillator pad overlies the thorax. Lungs: Improved expansion of the lungs with grossly similar bilateral interstitial and airspace opacities. Calcified granuloma in the lower right lung. Pleural spaces: Unremarkable. No pleural effusion. No pneumothorax. Heart/Mediastinum: Unremarkable. No cardiomegaly. Bones/joints: Unremarkable. XR/XR chest 1V portable [id number] IMPRESSION: 1. Improved expansion of the lungs with grossly similar bilateral interstitial and airspace opacities. 2. Endotracheal tube terminates approximately 4.4 cm above the sandor. 3. Enteric tube passes into the stomach with side port in the region of the GE junction.
[2025-01-26] MEDS: FUROsemide 10 mg/mL SDV 10mL 60 MG IVP (08:40)
[2025-01-26] MEDS: pantoprazole 40 mg SDV IVP (08:41)
--- NOTE | 2025-01-26 09:22 | P.PN_ITS ---
Subjective 2 Subjective: Stable on vent overnight. Responded well to Lasix given last night. Vitals/I&O/Wt Last Vital Signs Temp 98.0 F 01/26/25 08:00 Pulse 94 01/26/25 08:00 Resp 15 01/26/25 08:00 BP 92/71 01/26/25 08:00 Pulse Ox 100 01/26/25 08:00 O2 Del Method Mechanical Ventilation 01/26/25 08:45 O2 Flow Rate 2 01/25/25 17:44 FiO2 100 01/26/25 08:00 01/25/25 01/26/25 01/26/25 22:59 06:59 14:59 Intake Total 1062.865 / 1062.865 988.533 / 2051.398 7.5 / 7.5 Output Total 1500 / 1500 1725 / 3225 Balance -437.135 / -437.135 -736.467 / -1173.602 7.5 / 7.5 Weight last 48 hrs Weight 86.636 kg Weight 86.636 kg Weight 83.461 kg Weight 81.647 kg Physical Exam 2 Narrative: Sedated on vent Heart distant sinus rhythm normal S1-S2 without loud murmur Lungs: A few wheezes and rales anteriorly Abdomen obese soft nontender nondistended positive bowel sounds Extremities no clubbing cyanosis or edema Urinary Catheter Management: Sherwood: Cath Placed During This Visit: yes Reason for Continuing Indwelling Catheter: Accurate Measurement of Urinary Output in Critically Ill Patients Urinary Catheter Date of Insertion: 01/25/25 Urinary Catheter Time of Insertion: 20:20 Data 01/26/25 03:18 01/26/25 03:18 Micro: Microbiology 01/25/25 21:20 Blood Culture - Preliminary Blood SPECIMEN COLLECTED 01/25/25 21:25 Blood Culture - Preliminary Blood SPECIMEN COLLECTED A&P Assessment and plan 1. Coronary artery disease with recent acute coronary syndrome: 2. Cardiac arrest with ventricular fibrillation: 3. Tobacco abuse: 4. Hypotension: 5. Aspiration pneumonitis: Plan: Aspiration pneumonitis suspected during cardiac arrest - Single monotherapy with Zosyn for empiric coverage - There is also an vancomycin ordered by another provider. - Follow through with subsequent x-ray if needed - Nebulizer treatment and sedation in place - Maintain on vent while sheaths remain in place Inflammatory syndrome most likely due to cardiac arrest and resuscitation - Continue to monitor and optimize Hypotension - Secondary to cardiogenic shock and V-fib arrest - Levophed initiated - Patient doing better with blood pressure Congestive heart failure most likely due to resuscitation. - Continue Lasix dosing Hypokalemia-replaced last night will give potassium with Lasix dose today Tobacco abuse GI and DVT prophylaxis in place PDMP PDMP Reviewed: Not Reviewed Attestations 2 Medical Necessity Statement*: Per primary Coding Level of Care Code Acute Code for [facility] Fwd Diagnoses Coronary artery disease with recent acute coronary syndrome I25.10; I24.9 Cardiac arrest with ventricular fibrillation I46.9; I49.01 Tobacco abuse Z72.0 Hypotension I95.9 Aspiration pneumonitis J69.0
--- NOTE | 2025-01-26 10:14 | PHA.VACGOAL ---
Vancomycin Goal - Goal Vancomycin Goal:: 15-20 mg/L Vancomycin Indication:: Pneumonia - Therapy Current therapy:: Pip/Tazo Day of therpy:: Day []of [] . Actual body weight (kg): 191 lb - Data Labs: WBC 23.60 10^3/uL (3.29-11.43) H 01/26/25 03:18 RBC 4.12 10^6/uL (3.85-5.65) 01/26/25 03:18 Hgb 12.70 g/dL (11.27-16.99) 01/26/25 03:18 Hct 39.1 % (36-47) 01/26/25 03:18 MCV 94.9 fl (85-98) 01/26/25 03:18 MCH 30.8 pg (27-33) 01/26/25 03:18 MCHC 32.5 g/dL (30-55) D 01/26/25 03:18 RDW 14.0 % (12.1-15.1) 01/26/25 03:18 Sodium 141 mmol/L (136-145) 01/26/25 03:18 Potassium 4.2 mmol/L (3.5-5.1) 01/26/25 03:18 Chloride 106 mmol/L (98-107) 01/26/25 03:18 Carbon Dioxide 20 mmol/L (22-29) L 01/26/25 03:18 Anion Gap 19.2 (5-19) H 01/26/25 03:18 BUN 9 mg/dL (6-20) 01/26/25 03:18 Creatinine 0.7 mg/dL (0.5-0.9) 01/26/25 03:18 GFR Calculation 85.6 mL/min (90-130) L 01/26/25 03:18 Last dialysis session:: N/A Treatment plan:: new consult Regimen:: VANCOMYCIN STARTED BY OVERNIGHT TELEPHARMACY. PATIENT RECEIVED 1750 MG LOADING DOSE AND STARTED ON 1250 MG Q12H MAINTENANCE DOSE. WILL CONTINUE TO MONITOR DAILY AND OBTAIN TROUGH PRIOR TO 4TH DOSE.
--- NOTE | 2025-01-26 10:24 | ECG_ITS ---
[facility] Date: 2025-01-26 Pat Name: Olimpia Yu Department: Room: ICU10 Gender: Female Rn Transition: : 1965 Requested By: Reyes Costa Order Number: [id number] Lydia MD: Timmy Brantley M.D. Measurements Intervals [place] Rate: 98 P: 91 [place]: 124 QRS: 99 QRSD: 82 T: 150 QT: 384 QTc: 491 Interpretive Statements SINUS RHYTHM RIGHT AXIS DEVIATION ANTEROLATERAL MYOCARDIAL INFARCTION , PROBABLY RECENT [40+ ms Q WAVE IN I/aVL/V3-V6] ACUTE ID INFERIOR ST DEPRESSION CONSISTENT WITH ISCHEMIA Compared to ECG 01/25/2025 17:33:41 Intraventricular conduction delay no longer present INFERIOR ST ELEVATION NO LONGER PRESENT DEEP ANTEROLATERAL T WAVE INVERSIONS ARE NEW RIGHT AXIS DEVIATION IS NEW Electronically Signed On 01-26-2025 23:35:38 CDT by Timmy Brantley M.D. [email or web address]
[2025-01-26] MEDS: fentaNYL 1,000 MCG/100 ML BAG 2.5 MCG IV (10:34)
[2025-01-26] MEDS: propofol 1,000 MG/100 ML INJ 14.7 MG IV (10:35)
--- NOTE | 2025-01-26 11:17 | PC.NURSE ---
Addendum entered by Rl Nugent RN 01/26/25 11:20: waste witnessed by this nurse Original Note: wasted 55.9ml versed. witnessed by red rendon.
[2025-01-26] MEDS: norepinephrine 4 MG/250 ML BAG 18.75 MG IV (12:00)
--- NOTE | 2025-01-26 12:00 | PM.PN ---
Subjective Subjective: Patient remained intubated, there is worsening of the x-ray with suspicion of development of ARDS possible secondary to aspiration during process of intubation. Patient is status post PCI to proximal to mid bifurcating LAD into diagonal and LAD with T stenting Vitals/I&O/Wt Last Vital Signs Temp 98.0 F 01/26/25 08:00 Pulse 92 01/26/25 11:23 Resp 11 L 01/26/25 11:11 BP 102/80 01/26/25 10:15 Pulse Ox 99 01/26/25 11:11 O2 Del Method Mechanical Ventilation 01/26/25 11:15 O2 Flow Rate 2 01/25/25 17:44 FiO2 50 01/26/25 11:11 01/25/25 01/26/25 01/26/25 22:59 06:59 14:59 Intake Total 1062.865 / 1062.865 988.533 / 2051.398 822.051 / 822.051 Output Total 1500 / 1500 1725 / 3225 Balance -437.135 / -437.135 -736.467 / -1173.602 822.051 / 822.051 Weight last 48 hrs Weight 191 lb Weight 191 lb Weight 184 lb Weight 180 lb Physical Exam Const: OTHER: GENERAL: Patient is intubated on propofol and fentanyl HEART: Regular S1 and S2. No murmur, rub or gallop. LUNGS: Decreased breath sound bilaterally. CENTRAL NERVOUS SYSTEM: Grossly nonfocal. EXTREMITIES: Lower extremities with out edema bilaterally. Urinary Catheter Management: Sherwood: Cath Placed During This Visit: yes Reason for Continuing Indwelling Catheter: Accurate Measurement of Urinary Output in Critically Ill Patients Urinary Catheter Date of Insertion: 01/25/25 Urinary Catheter Time of Insertion: 20:20 Data 01/26/25 03:18 01/26/25 03:18 Micro: Microbiology 01/25/25 21:20 Blood Culture - Preliminary Blood SPECIMEN COLLECTED 01/25/25 21:25 Blood Culture - Preliminary Blood SPECIMEN COLLECTED A&P Assessment and plan 1. Cardiac arrest with ventricular fibrillation: 2. Aspiration pneumonitis: 3. Hypotension: 4. ST elevation [place] (STEMI): 5. Tobacco abuse: 6. LV dysfunction: Plan: Overall x-ray today is concerning for possible development of ARDS due to respiratory pneumonia. Patient is on IV antibiotic broad-spectrum Zosyn/vancomycin, At the point FiO2 is 50, PEEP is 10 Echocardiogram is suggestive of anterior wall hypokinesis with ejection fraction around 40%. Patient is diuresing well she is 3 L negative overnight. Continue to titrate off Levophed which has already reduced from 15-3 mics Continue 60 mg of IV Lasix twice daily and replenish potassium Patient has been off of amiodarone Since we do not have pulmonary critical care service here in case of further worsening of x-ray chest and development of ARDS we may will possibly transfer patient for higher pulmonary critical driller brake lining care, have discussed with our hospitalist colleague after discussing with family who are in agreement. We will await transfer bed placement PDMP PDMP Reviewed: Not Reviewed Attestations Medical Necessity Statement*: Patient require continuation hospitalization for above defined care. Coding Level of Care Code Acute Code for [facility] Fwd Diagnoses Cardiac arrest with ventricular fibrillation I46.9; I49.01 Aspiration pneumonitis J69.[address] elevation [place] (STEMI) I21.3 Tobacco abuse Z72.0 LV dysfunction I51.9
--- NOTE | 2025-01-26 12:50 | P.DS_ITS ---
Discharge Providers Date of Admission: 01/25/25 20:19 Date of Discharge: January 26, 2025 Attending Provider at Admission: Reyes Costa MD Attending Provider at Discharge: Reyes Costa MD Primary Care Provider: Simi Givens Diagnoses at Discharge Discharge Diagnosis 1. Cardiac arrest with ventricular fibrillation: 2. Aspiration pneumonitis: 3. Hypotension: 4. ST elevation AZ (STEMI): 5. Tobacco abuse: 6. LV dysfunction: Reason for Visit Reason for Visit: chest pain Brief History: 59-year-old female who states she starte d having chest pain roughly 40 minutes ago states been a pressure type pain she rates an 8 out of 10 she has had vomiting along with diaphoresis. Patient denies any history of any coronary artery disease or stents in the past is a smoker. Denies any worse improving factors Patient was found to have a ST segment elevation AZ and taken to [facility] Hospital Course In the [facility] originally cardiology felt intervention was too high risk. Subsequently the patient went into V-fib cardiac arrest. Patient had multiple defibrillations given amiodarone bolus followed by amiodarone drip. The patient received stent to the proximal LAD. There was pre and post dilatation with balloon. The mid LAD lesion was also predilated and a drug-eluting stent post dilation was completed. Postprocedure echocardiogram shows 40% EF with moderately elevated left ventricular end-diastolic pressure of 24 mmHg. There was no aortic gradient Patient was started on Levophed as well as intubated. She was transferred to the ICU. In the emergency room patient was vomiting. There was concern that patient may have aspirated. She was started on empiric antibiotics. And since the patient was volume overloaded she was given Lasix with excellent diuresis. This morning cardiology asked for transfer to a facility that has critical care and pulmonary. There is concern about respiratory complications with aspiration and her smoking history and possible ARDS. Physical Exam Narrative: Sedated on vent Heart distant sinus rhythm normal S1-S2 without loud murmur Lungs: A few wheezes and rales anteriorly Abdomen obese soft nontender nondistended positive bowel sounds Extremities no clubbing cyanosis or edema Urinary Catheter Management: Sherwood: Cath Placed During This Visit: yes Reason for Continuing Indwelling Catheter: Accurate Measurement of Urinary Output in Critically Ill Patients Urinary Catheter Date of Insertion: 01/25/25 Urinary Catheter Time of Insertion: 20:20 Discharge Data Studies Completed and Pending Completed Studies During Hospitalization Category Date Time Status PILL[employer] CLEANER request for service Stat Exams 01/25/25 17:36 Completed XR chest 1V portable [id number] Routine Exams 01/25/25 19:45 Completed XR chest 1V portable [id number] Routine Exams 01/26/25 08:00 Completed XR chest 1V portable [id number] Stat Exams 01/25/25 17:31 Completed Pending at discharge Category Date Time Status Blood Culture Stat Lab 01/25/25 21:20 Results Sputum Culture and Gram Stain Stat Lab 01/26/25 09:36 Received Troponin(5th) 2 Hour. Timed Lab 01/25/25 19:44 Ordered Urine Culture Stat Lab 01/25/25 21:34 Received Vancomycin Trough Timed Lab 01/27/25 21:00 Ordered CV. echo complete* [id number] Routine Ultrasound 01/26/25 20:23 Taken Radiology Impressions Chest X-Ray 01/26/25 08:00 IMPRESSION: 1. Improved expansion of the lungs with grossly similar bilateral interstitial and airspace opacities. 2. Endotracheal tube terminates approximately 4.4 cm above the sandor. 3. Enteric tube passes into the stomach with side port in the region of the GE junction. Laboratory Results WBC 23.60 10^3/uL (3.29-11.43) H 01/26/25 03:18 RBC 4.12 10^6/uL (3.85-5.65) 01/26/25 03:18 Hgb 12.70 g/dL (11.27-16.99) 01/26/25 03:18 Hct 39.1 % (36-47) 01/26/25 03:18 MCV 94.9 fl (85-98) 01/26/25 03:18 MCH 30.8 pg (27-33) 01/26/25 03:18 MCHC 32.5 g/dL (30-55) D 01/26/25 03:18 RDW 14.0 % (12.1-15.1) 01/26/25 03:18 Plt Count 296 10^3/cmm (157-399) 01/26/25 03:18 MPV 9.3 fL (7.4-10.4) 01/26/25 03:18 Neut % (Auto) 82.8 % 01/26/25 03:18 Lymph % (Auto) 7.0 % 01/26/25 03:18 [place] % (Auto) 8.9 % 01/26/25 03:18 Eos % (Auto) 0.2 % 01/26/25 03:18 Baso % (Auto) 0.3 % 01/26/25 03:18 Neut # (Auto) 19.56 10^3/uL (1.8-7.7) H 01/26/25 03:18 Lymph # (Auto) 1.7 10^3/uL (0.8-4.8) 01/26/25 03:18 [place] # (Auto) 2.1 10^3/uL (0.2-0.9) H 01/26/25 03:18 Eos # (Auto) 0.1 10^3/uL (0.0-0.8) 01/26/25 03:18 Baso # (Auto) 0.1 10^3/uL (0.0-0.1) 01/26/25 03:18 Nucleated RBC % (auto) 0 % 01/26/25 03:18 Nucleated RBCs # 0.0 /100WBC 01/26/25 03:18 APTT 111.6 SECONDS (23.9-36.7) H 01/25/25 21:25 Specimen Type Arterial 01/26/25 03:10 Sample Site Brachial, right 01/26/25 03:10 ABG pH 7.33 (7.35-7.45) L 01/26/25 03:10 ABG pCO2 42.1 mmHg (35-45) 01/26/25 03:10 ABG pO2 322.0 mmHg (80.0-100.0) H 01/26/25 03:10 ABG PO2/FiO2 Ratio 322 01/26/25 03:10 ABG HCO3 22.3 mmol/L (22-26) 01/26/25 03:10 ABG O2 Saturation > 99.1 01/26/25 03:10 ABG Base Excess -3.6 mmol/L (-2.0-2.0) L 01/26/25 03:10 Jorge Test Pos 01/26/25 03:10 A-a O2 Gradient 43.3 mmHg (5-10) H 01/26/25 03:10 Hematocrit 41.6 % (37-47) 01/26/25 03:10 Hgb O2 Saturation 98.0 % (95-100) 01/26/25 03:10 Carboxyhemoglobin 0.9 %THgb (0.4-20.1) 01/26/25 03:10 Methemoglobin 1.3 % (0.4-1.5) 01/26/25 03:10 Total Hemoglobin 13.6 g/dL (12-16) 01/26/25 03:10 Sodium 141.0 mmol/L (131-143) 01/26/25 03:10 Potassium 3.7 mmol/L (3.5-5.0) 01/26/25 03:10 Glucose 148.0 mg/dL (70-115) H 01/26/25 03:10 Ionized Calcium 1.1 mmol/L (1.1-1.4) 01/26/25 03:10 O2 Delivery Device Vent 01/26/25 03:10 SIMV 8.0 01/26/25 03:10 FiO2 100.0 % 01/26/25 03:10 Tidal Volume 0.45 01/25/25 21:11 PEEP 10.0 cmH20 01/26/25 03:10 Community Specialist ID Enio 01/26/25 03:10 Sodium 141 mmol/L (136-145) 01/26/25 03:18 Potassium 4.2 mmol/L (3.5-5.1) 01/26/25 03:18 Chloride 106 mmol/L (98-107) 01/26/25 03:18 Carbon Dioxide 20 mmol/L (22-29) L 01/26/25 03:18 Anion Gap 19.2 (5-19) H 01/26/25 03:18 BUN 9 mg/dL (6-20) 01/26/25 03:18 Creatinine 0.7 mg/dL (0.5-0.9) 01/26/25 03:18 GFR Calculation 85.6 mL/min (90-130) L 01/26/25 03:18 Glucose 144 mg/dL (65-115) H 01/26/25 03:18 Estimat Average Glucose 111 01/25/25 21:25 Hemoglobin A1c 5.5 % (4.0-6.0) 01/25/25 21:25 Calculated Osmolality 293 mOsm/kg (285-295) 01/26/25 03:18 Lactate 1.5 mmol/L (0.5-2.2) 01/26/25 03:18 Calcium 7.9 mg/dL (8.5-10.5) L 01/26/25 03:18 Phosphorus 3.8 mg/dL (2.5-4.5) 01/26/25 00:00 Phosphorus Cancelled 01/26/25 00:00 Magnesium 1.9 mg/dL (1.7-2.3) 01/26/25 03:18 Total Bilirubin 0.2 mg/dL (0.15-1.2) 01/26/25 03:18 AST 65 U/L (0-32) H 01/26/25 03:18 ALT 16 U/L (0-33) 01/26/25 03:18 Alkaline Phosphatase 81 U/L (35-105) 01/26/25 03:18 Troponin T Baseline 9 ng/L (0-10) 01/25/25 17:44 Troponin T Hi Sens 6Hr 1900 ng/L (0-10) H 01/26/25 00:00 Troponin T Hi Sens 6Hr Delta 1891 ng/L (0-12) H* 01/26/25 00:00 Total Protein 6.3 g/dL (6.6-8.7) L 01/26/25 03:18 Albumin 3.7 g/dL (3.5-5.2) 01/26/25 03:18 Globulin 2.6 g/dL (1.3-4.6) 01/26/25 03:18 Triglycerides 116 mg/dL (0-150) 01/25/25 21:25 Cholesterol 191 mg/dL (0-200) 01/25/25 21:25 LDL Cholesterol, Calc 109 mg/dL (50-129) 01/25/25 21:25 Total VLDL Cholesterol 23 mg/dL (0-30) 01/25/25 21:25 HDL Cholesterol 59 mg/dL (60-100) L 01/25/25 21:25 Cholesterol/HDL Ratio 3.24 mg/dL (0.0-4.40) 01/25/25 21:25 Lipase 43 U/L (13-60) 01/25/25 17:44 TSH 5.39 uIU/mL (0.27-4.20) H 01/25/25 21:25 Vitals Last Vital Signs Temp 98.0 F 01/26/25 08:00 Pulse 92 01/26/25 11:23 Resp 11 L 01/26/25 11:11 BP 102/80 01/26/25 10:15 Pulse Ox 99 01/26/25 11:11 O2 Del Method Mechanical Ventilation 01/26/25 11:45 O2 Flow Rate 2 01/25/25 17:44 FiO2 50 01/26/25 11:11 Discharge Plan Discharge Patient Disposition: Xfer Short-Term Hosp Condition: Stable Prescriptions: No Action cetirizine [Zyrtec] 10 mg Tablet 10 mg PO DAILY PRN (Reason: allergies) sertraline 100 mg tablet 100 mg PO DAILY simvastatin 40 mg tablet 40 mg PO QPM fluticasone propionate [Flonase Allergy Relief] 50 mcg/actuation Morton,Suspension 1 spray INTRANASAL DAILY Rx Instructions: administer into each nostril Discharge Order = DC NOW: Discharge Order (Routine); Ordered 01/26/25 Ordered By: Vini Bravo Referrals: Simi Givens FNP [Primary Care Provider, Nurse Practitioner] Patient Instructions: Opioid Safety, Patient Portal & Evelia Instructions Discharge Attestations Time Spent in Discharge Care*: other (Called [facility] transfer kala[facility]o. Then spoke with drop hammer mechanic.) Quality Metrics Clinical Quality Measures [ No reported AMI, CVA or VTE this stay] Coding Level of Care Code Acute Code for Chg Fwd Diagnoses Cardiac arrest with ventricular fibrillation I46.9; I49.01 Aspiration pneumonitis J69.[address] elevation [place] (STEMI) I21.3 Tobacco abuse Z72.0 LV dysfunction I51.9
--- NOTE | 2025-01-26 12:54 | PC.NURSE ---
Right Arterial Sheath pulled at 1140, manual pressure applied until 1205. No bleeding or hematoma noted, folded 4x4 guaze and clear occlusive dressing applied. Left venous sheath pulled at 1210, pressure applied until 1218. No bleeding or hematoma, folded 4X4 and clear occlusive dressing applied. Tolerated well. Report called to Mirna Oliver RN at [facility]. [facility].
--- NOTE | 2025-01-26 20:23 | USCV_ITS ---
Olimpia Yu Age: 59 Gender: F : 1965 Exam Date: 01/26/2025 09:25 Ordering Phys: Reyes Costa MD ([email or web address]) Technologist: Kenneth Miramontes Exam Location: [facility] – [place] Indication: shock stemi BP: 92 / 71 HR: 104 Rhythm: Sinus Technical Quality: Adequate MEASUREMENTS (Male / Female) Normal Values 2D ECHO LV Diastolic Diameter PLAX 4.2 cm 4.2 - 5.9 / 3.9 - 5.3 cm IVS Diastolic Thickness 1.0 cm 0.6 - 1.0 / 0.6 - 0.9 cm IVS Systolic Thickness 1.1 cm LVPW Diastolic Thickness 0.8 cm 0.6 - 1.0 / 0.6 - 0.9 cm LVPW Systolic Thickness 1.2 cm LVOT Diameter 2.0 cm LV Ejection Fraction 2D Teich 67.9 % LV Ejection Fraction MOD 4C 40.2 % LV Ejection Fraction MOD 2C 36.8 % LV Ejection Fraction 2C AL 34.7 % LA Diameter 3.3 cm RA Systolic Volume 4C AL 11.7 ml RA Systolic Volume 4C MOD 10.5 ml LA Sys Volume AL 15.5 cm cubed LA Sys Volume Index AL 7.5 cm cubed/m squared Aorta at Sinotubular Diameter 2.3 cm IVC Diameter 1.4 cm M-MODE LA Ao Ratio MM 1.0 AV Cusp Separation MM 1.9 cm DOPPLER AV Peak Velocity 106.0 cm/s LVOT Peak Velocity 96.0 cm/s AV Area Cont Eq vti 3.2 cm squared AV Area Cont Eq pk 2.8 cm squared MV Peak Velocity 77.0 cm/s MV Area PHT 12.5 cm squared Mitral E to A Ratio 0.5 TV Peak Velocity 189.7 cm/s TR Peak Velocity 204.0 cm/s TR Peak Gradient 16.6 mmHg TR Mean Velocity 185.0 cm/s TR Mean Gradient 13.8 mmHg TR Velocity Time Integral 39.4 cm PV Peak Velocity 100.0 cm/s RV Ejection Time 0.2 s FINDINGS Left Ventricle Normal left ventricular cavity size. There is akinesis of all apical segments and the mid anteroseptal, anterior and anterolateral wall segments. Overall, moderate reduction of the left ventricular dsystolic function, EF 34%. Normal left ventricular wall thickness. Normal diastolic function. Right Ventricle Normal right ventricular size and systolic function. Normal right ventricular systolic pressure. Right Atrium Normal right atrial size. Left Atrium Normal left atrial size. Mitral Valve Trace mitral valve regurgitation. Aortic Valve Aortic valve not well visualized. No aortic valve stenosis. No aortic valve regurgitation. Tricuspid Valve Trace tricuspid valve regurgitation. Pulmonic Valve No pulmonary valve stenosis. No pulmonary valve regurgitation. Pericardium No pericardial effusion. Aorta Normal size aortic root and proximal ascending aorta. IVC Normal inferior vena cava size with less than 50% collapse. CONCLUSIONS 1. Moderately reduced left ventricular systolic function with akinesis of all apical segments, mid anteroseptal, anterolateral and anterior martin with ejection fraction 34%. Normal left ventricular cavity size. 2. Normal right ventricular size and systolic function 3. No significant valvular dysfunction. Timmy Brantley MD, FACC (Electronically Signed) Final Date: 26 January 2025 14:29 S
== END 2025-01-26 13:30 | disposition short-term general hospital (02) | DRG 321 ==
LOC: ER 17:48 → CCL 18:08 → ICU 20:20
PROVIDERS: Internal Medicine; Admitting Provider Internal Medicine Cardiovascular Disease; Emergency Provider Emergency Medicine; PCP Nurse Practitioner Family; Visit Provider Internal Medicine Cardiovascular Disease
PROC: 027035Z Dilation of Coronary Artery, One Artery with Two Drug-eluting Intraluminal Devices, Percutaneous Approach (ICD-10-PCS; principal; 2025-01-25 18:15)
PROC: 027035Z Dilation of Coronary Artery, One Artery with Two Drug-eluting Intraluminal Devices, Percutaneous Approach (ICD-10-PCS; 2025-01-25 18:15)
DX: I21.09 ST elevation (STEMI) myocardial infarction involving other coronary artery of anterior wall (principal); I46.9 Cardiac arrest, cause unspecified; I49.01 Ventricular fibrillation; J69.0 Pneumonitis due to inhalation of food and vomit; J80 Acute respiratory distress syndrome; I25.10 Atherosclerotic heart disease of native coronary artery without angina pectoris; I95.9 Hypotension, unspecified; F17.200 Nicotine dependence, unspecified, uncomplicated; E78.5 Hyperlipidemia, unspecified; I45.10 Unspecified right bundle-branch block; I24.9 Acute ischemic heart disease, unspecified
CPT/HCPCS: 36415; 51702; 71045; 80048; 80051; 80053; 80061; 82330; 82805; 83036; 83605; 83690; 83735; 84100; 84443; 84484; 85025; 85347; 85730; 87040; 87070; 87086; 87205; 92950; 93005; 93306; 93458; 94002; 94003; 94640; 94799; 96372; 96374; 96375; 99152; 99153; 99291; C1725; C1769; C1874; C1887; C1894; C9600; J0282; J0283; J0461; J1644; J1650; J1938; J2250; J2270; J2405; J2470; J2543; J2704; J3010; J3372; J3373; J3490; J7030; J9999; Q9967

== ENCOUNTER 2025-02-26 11:59 | Outpatient (RCR) | payer BC, SELFPAY | END 2025-03-28 23:59 | disposition home or self-care (01) | LOC: CR 11:59 | PROVIDERS: PCP Nurse Practitioner Family; Referring Provider Internal Medicine Cardiovascular Disease; Visit Provider Internal Medicine Cardiovascular Disease | DX: I50.9 Heart failure, unspecified (principal) | CPT/HCPCS: 93798 ==

== ENCOUNTER 2025-03-27 14:34 | Outpatient (CLI) | payer BC, SELFPAY ==
--- NOTE | 2025-03-27 14:40 | XR_ITS ---
WS: [id number] Exam: XR chest 2V* [id number] Date/Time of Exam: 03/27/2025 2:47 PM Reason For Exam: COUGH Comparison 01/26/2025. Lungs are clear and fully inflated. Normal cardiomediastinal silhouette. No pleural effusions. Calcified granuloma in the RIGHT base. XR/XR chest 2V* [id number] IMPRESSION: 1. No acute cardiopulmonary finding.
== END 2025-03-27 14:35 | disposition home or self-care (01) ==
LOC: RAD 14:35
PROVIDERS: PCP Nurse Practitioner Family; Visit Provider Nurse Practitioner Family
DX: R05.8 Other specified cough (principal); J98.4 Other disorders of lung
CPT/HCPCS: 71046

== ENCOUNTER 2025-03-29 13:44 | Outpatient (RCR) | payer BC, SELFPAY | END 2025-04-27 23:59 | disposition home or self-care (01) | LOC: CR 13:44 | PROVIDERS: PCP Nurse Practitioner Family; Referring Provider Internal Medicine Cardiovascular Disease; Visit Provider Internal Medicine Cardiovascular Disease | DX: I50.9 Heart failure, unspecified (principal) | CPT/HCPCS: 93798 ==

== ENCOUNTER 2025-04-04 06:04 | Outpatient (CLI) | payer BC, SELFPAY ==
--- NOTE | 2025-04-04 06:15 | USCV_ITS ---
Olimpia Yu Age: 59 Gender: F : 1965 Exam Date: 04/04/2025 06:47 Ordering Phys: Reyes Costa MD ([email or web address]) Technologist: Kenneth Miramontes [place]am [place] [facility] [place] Indication: assess EF, past TX BP: 138 / 78 HR: 54 Rhythm: Sinus Technical Quality: Adequate MEASUREMENTS (Male / Female) Normal Values 2D ECHO LV Diastolic Diameter PLAX 4.3 cm 4.2 - 5.9 / 3.9 - 5.3 cm IVS Diastolic Thickness 0.8 cm 0.6 - 1.0 / 0.6 - 0.9 cm IVS Systolic Thickness 1.1 cm LVPW Diastolic Thickness 0.6 cm 0.6 - 1.0 / 0.6 - 0.9 cm LVPW Systolic Thickness 1.0 cm LVOT Diameter 2.0 cm LV Ejection Fraction 2D Teich 49.8 % LV Ejection Fraction MOD 4C 51.9 % LV Ejection Fraction MOD 2C 58.7 % LV Ejection Fraction 2C AL 59.0 % RA Systolic Volume 4C AL 42.5 ml RA Systolic Volume 4C MOD 37.6 ml LA Sys Volume AL 33.6 cm cubed LA Sys Volume Index AL 16.9 cm cubed/m squared Aorta at Sinotubular Diameter 2.6 cm IVC Diameter 1.4 cm M-MODE LA Ao Ratio MM 1.0 AV Cusp Separation MM 1.1 cm DOPPLER AV Peak Velocity 121.0 cm/s LVOT Peak Velocity 113.0 cm/s AV Area Cont Eq vti 3.0 cm squared AV Area Cont Eq pk 3.0 cm squared MV Peak Velocity 59.0 cm/s MV Area PHT 2.8 cm squared Mitral E to A Ratio 0.8 TV Peak Velocity 224.5 cm/s TR Peak Velocity 238.0 cm/s TR Peak Gradient 22.7 mmHg TR Mean Velocity 182.0 cm/s TR Mean Gradient 14.4 mmHg TR Velocity Time Integral 61.2 cm PV Peak Velocity 95.3 cm/s RV Ejection Time 0.3 s FINDINGS Left Ventricle Normal left ventricular size, systolic function and wall thickness, with no regional wall motion abnormalities. Left ventricular ejection fraction is estimated at 55 %. Grade I/IV diastolic dysfunction (abnormal relaxation filling pattern), normal to mildly elevated filling pressures. Right Ventricle Normal right ventricular size and systolic function. Right Atrium Normal right atrial size. Left Atrium Normal left atrial size. IA Septum Normal appearance of the interatrial septum. Mitral Valve Normal mitral valve structure. No mitral valve stenosis or regurgitation. Aortic Valve Normal aortic valve structure. No aortic valve stenosis or regurgitation. Tricuspid Valve Normal tricuspid valve structure. No tricuspid valve stenosis or regurgitation. Normal pulmonary pressure. Pulmonic Valve Normal pulmonic valve structure. No pulmonic valve stenosis or regurgitation. Pericardium No pericardial effusion. Aorta Normal diameter of the aortic root and ascending thoracic aorta. IVC Normal IVC diameter. CONCLUSIONS Normal left ventricular size, systolic function and wall thickness, with no regional wall motion abnormalities. Left ventricular ejection fraction is estimated at 55 %. Grade I/IV diastolic dysfunction (abnormal relaxation filling pattern), normal to mildly elevated filling pressures. There is no pericardial effusion. No significant valve abnormalities. Right atrial pressure is around 5 mm of mercury. Reyes Cotsa MD (Electronically Signed) Final Date: 04 April 2025 19:40 S
== END 2025-04-04 06:05 | disposition home or self-care (01) ==
PROVIDERS: PCP Nurse Practitioner Family; Visit Provider Internal Medicine Cardiovascular Disease
DX: R07.9 Chest pain, unspecified (principal); I25.2 Old myocardial infarction; R93.1 Abnormal findings on diagnostic imaging of heart and coronary circulation
CPT/HCPCS: 93306

== ENCOUNTER → 2025-04-11 09:25 | Outpatient (BNVA) | payer BC, SELFPAY | PROVIDERS: PCP Nurse Practitioner Family; Referring Provider Nurse Practitioner Family; Visit Provider Internal Medicine | DX: J44.9 Chronic obstructive pulmonary disease, unspecified (principal); T78.40XA Allergy, unspecified, initial encounter; X58.XXXA Exposure to other specified factors, initial encounter | CPT/HCPCS: 36415; 85025; 86003 ==

== ENCOUNTER 2025-04-28 12:36 | Outpatient (RCR) | payer BC, SELFPAY | END 2025-05-28 23:59 | disposition home or self-care (01) | LOC: CR 12:36 | PROVIDERS: PCP Nurse Practitioner Family; Referring Provider Internal Medicine Cardiovascular Disease; Visit Provider Internal Medicine Cardiovascular Disease | DX: I50.9 Heart failure, unspecified (principal) | CPT/HCPCS: 93798 ==

== ENCOUNTER 2025-04-28 14:40 | Outpatient (CLI) | payer BC, SELFPAY ==
--- NOTE | 2025-04-28 15:00 | CT_ITS ---
WS: [id number] CT CHEST TECHNIQUE: Contrast enhanced CT of the chest with coronal and sagittal reformatted images. CLINICAL INFORMATION: lung nodule COMPARISON: No prior CTs available. Radiograph 03/27/2025. DLP: 522.[address] scans at [facility] use at least one of these dose optimization techniques: automated exposure control; mA and/or kV adjustment per patient size (includes targeted exams where dose is matched to clinical indication); or iterative reconstruction. FINDINGS: Moderate chronic emphysematous changes. Calcific granuloma RIGHT upper lobe. Semisolid pleural-based nodule RIGHT lower lobe measuring 5 mm. Few patchy groundglass opacities in the perihilar regions and both lower lobes. Subsegmental atelectasis RIGHT upper lobe anteriorly. Normal caliber thoracic aorta. Coronary calcification. Mild aortic calcification. No mediastinal or hilar lymphadenopathy. No axillary lymphadenopathy. Calcified subcarinal lymph nodes. Cholecystectomy clips. Adrenal glands are normal. Splenic granulomas. Small esophageal hiatal hernia. Mild thoracic curve and kyphosis. Hypertrophic changes thoracic spine. CT/CT chest w con* [id number] IMPRESSION: 1. Moderate chronic emphysematous changes. 2. Semisolid pleural-based nodule RIGHT lower lobe measuring 5 mm. 3. Few patchy groundglass opacities in the perihilar regions and both lower lo bes are nonspecific but probably inflammatory. 4. Subsegmental atelectasis RIGHT upper lobe anteriorly. 5. No mediastinal or hilar lymphadenopathy.
[2025-04-28] MEDS: iohexol 350 mg/mL 500 mL Btl (per mL) IV (15:29)
== END 2025-04-28 14:41 | disposition home or self-care (01) ==
LOC: RAD 14:42
PROVIDERS: PCP Nurse Practitioner Family; Visit Provider Internal Medicine
DX: J44.9 Chronic obstructive pulmonary disease, unspecified (principal); R91.1 Solitary pulmonary nodule; R91.8 Other nonspecific abnormal finding of lung field; J98.11 Atelectasis; M40.204 Unspecified kyphosis, thoracic region; Z90.49 Acquired absence of other specified parts of digestive tract; Z96.89 Presence of other specified functional implants; K44.9 Diaphragmatic hernia without obstruction or gangrene; D73.9 Disease of spleen, unspecified; I70.0 Atherosclerosis of aorta
CPT/HCPCS: 71260

== ENCOUNTER 2025-05-13 09:06 | Outpatient (CLI) | payer BC, SELFPAY | END 2025-05-13 09:07 | disposition home or self-care (01) | LOC: RT 09:13 | PROVIDERS: Absent Provider Internal Medicine; Family Provider Internal Medicine Cardiovascular Disease; PCP Nurse Practitioner Family; Visit Provider Nurse Practitioner Family | DX: J44.9 Chronic obstructive pulmonary disease, unspecified (principal); J45.909 Unspecified asthma, uncomplicated; J98.8 Other specified respiratory disorders | CPT/HCPCS: 94060; 94726; J7613 ==